=== PATIENT | female | born 1985 | race Caucasian/White ===

== ENCOUNTER 2016-06-18 08:02 | Emergency (ER) | payer MEDICAID, BC ==
[2010-05-12 07:11] VITALS: BMI 40.8
[~2016-06-18 08:02] MED LIST: MOTRIN800 MG PO
[2016-06-18 09:08] LABS: BASOPHILS 0.5 % (0.0-2.0); EOSINOPHILS 3.9 % (0-7); HEMATOCRIT 41.2 % (36.0-48.0); HEMOGLOBIN 13.3 g/dL (12-16); IMMATURE GRANULOCYTES 0.2 % (0-5); MCH 27.1 pg (26.0-34.0); MCHC 32.3 g/dL (31.0-37.0); MCV 84.1 fL (80.0-100.0); MEAN PLATELET VOLUME 9.7 fL (7.4-10.4); MONOCYTES 7.9 % (2-11); NEUTROPHILS 62.5 % (40-80); PLATELET COUNT 327 10x3/uL (130-400); RDW 14.4 % (11.5-14.5); WBC 10.2 10x3/uL (4.8-10.8)
[2016-06-18 09:45] LABS: APPEARANCE CLEAR (CLEAR); BILIRUBIN NEGATIVE (NEGATIVE); COLOR YELLOW (YELLOW); GLUCOSE NEGATIVE (NEGATIVE); KETONE NEGATIVE (NEGATIVE); LEUKOCYTE ESTERASE 1+ (NEGATIVE); NITRITE NEGATIVE (NEGATIVE); PROTEIN NEGATIVE (NEGATIVE); UROBILINOGEN NORMAL (NORMAL)
[2016-06-18 09:46] LABS: BACTERIA MODERATE /hpf (NONE SEEN); MUCUS <1+ /lpf (NONE SEEN); RED CELLS - URINE 0-5 /hpf (0-5)
== END 2016-06-18 10:15 | disposition home or self-care (01) ==
LOC: D.ER 08:02
PROVIDERS: Emergency Medicine
DX: M79.1 Myalgia (principal); J45.909 Unspecified asthma, uncomplicated; F17.200 Nicotine dependence, unspecified, uncomplicated

== ENCOUNTER 2017-02-04 10:27 | Emergency (ER) | payer MEDICAID ==
[2010-05-12 07:11] VITALS: BMI 40.8
[2017-02-04 12:35] LABS: BASOPHILS 0.5 % (0-2); EOSINOPHILS 8.2 % (0-7); HEMATOCRIT 42.7 % (36.0-48.0); HEMOGLOBIN 14.2 g/dL (12-16); IMMATURE GRANULOCYTES 0.2 % (0-5); LYMPHOCYTES 23.9 % (15-50); MCH 28.7 pg (26.0-34.0); MCHC 33.3 g/dL (31.0-37.0); MCV 86.4 fL (80.0-100.0); MEAN PLATELET VOLUME 9.4 fL (7.4-10.4); MONOCYTES 6.9 % (2-11); NEUTROPHILS 60.3 % (40-80); PLATELET COUNT 341 10x3/uL (130-400); RBC 4.94 10x6/uL (4.00-5.40); RDW 13.7 % (11.5-14.5); WBC 11.6 10x3/uL (4.8-10.8)
[2017-02-04 12:48] LABS: ALBUMIN 3.5 g/dL (3.4-5.0); ALKALINE PHOSPHATASE 50 U/L (46-116); ALT (SGPT) 29 U/L (10-68); BILIRUBIN - TOTAL 0.45 mg/dL (0.2-1.3); CALC OSMOLALITY 272 mosm/kg (275-300); CALCIUM 9.5 mg/dL (8.5-10.1); CARBON DIOXIDE 26.3 mmol/L (21.0-32.0); CHLORIDE - SERUM 103 mmol/L (98-107); CREATININE - SERUM 0.9 mg/dL (0.6-1.3); GLUCOSE 98 mg/dL (74-106); POTASSIUM - SERUM 4.8 mmol/L (3.5-5.1); PROTEIN - SERUM 8.4 g/dL (6.4-8.2); SODIUM 137 mmol/L (136-145); UREA NITROGEN 10 mg/dL (7-18); eGFR NON AFRICAN AMERICAN 78 mL/min (90-120)
== END 2017-02-04 13:51 | disposition home or self-care (01) ==
LOC: D.ER 10:27
PROVIDERS: Nurse Practitioner Family
DX: J45.901 Unspecified asthma with (acute) exacerbation (principal); J18.9 Pneumonia, unspecified organism; F17.200 Nicotine dependence, unspecified, uncomplicated

== ENCOUNTER 2017-02-16 21:22 | Inpatient (IN) | payer MEDICAID ==
[2017-02-16 22:33] LABS: BASOPHILS 0.1 % (0-2); EOSINOPHILS 1.7 % (0-7); HEMATOCRIT 42.2 % (36.0-48.0); HEMOGLOBIN 13.9 g/dL (12-16); IMMATURE GRANULOCYTES 0.3 % (0-5); LYMPHOCYTES 7.8 % (15-50); MCH 28.6 pg (26.0-34.0); MCHC 32.9 g/dL (31.0-37.0); MCV 86.8 fL (80.0-100.0); MEAN PLATELET VOLUME 9.5 fL (7.4-10.4); MONOCYTES 4.4 % (2-11); NEUTROPHILS 85.7 % (40-80); PLATELET COUNT 311 10x3/uL (130-400); RBC 4.86 10x6/uL (4.00-5.40); RDW 13.7 % (11.5-14.5); WBC 19.7 10x3/uL (4.8-10.8)
[2017-02-16 22:47] LABS: ALBUMIN 3.9 g/dL (3.4-5.0); ALKALINE PHOSPHATASE 43 U/L (46-116); ALT (SGPT) 21 U/L (10-68); CALC OSMOLALITY 274 mosm/kg (275-300); CALCIUM 9.2 mg/dL (8.5-10.1); CARBON DIOXIDE 26.9 mmol/L (21.0-32.0); CHLORIDE - SERUM 101 mmol/L (98-107); CREATININE - SERUM 0.9 mg/dL (0.6-1.3); GLUCOSE 137 mg/dL (74-106); PROTEIN - SERUM 8.1 g/dL (6.4-8.2); SODIUM 137 mmol/L (136-145); UREA NITROGEN 9 mg/dL (7-18); eGFR NON AFRICAN AMERICAN 78 mL/min (90-120)
[2017-02-16 23:14] LABS: CREATINE KINASE 107 UL (21-215); MAGNESIUM - SERUM 1.8 mg/dL (1.8-2.4); PRO BNP 34 pg/mL (0-125); TROPONIN-I < 0.017 ng/mL (0.000-0.060)
[2017-02-16 23:26] LABS: INR 0.97 (0.85-1.17); PROTIME 12.7 SECONDS (11.6-15.0)
[2017-02-16 23:28] LABS: D-DIMER-QUANTITATIVE < 0.27 ug/mLFEU (0.20-0.54)
[2017-02-16 23:54] LABS: APPEARANCE CLEAR (CLEAR); BILIRUBIN NEGATIVE (NEGATIVE); COLOR STRAW (YELLOW); GLUCOSE NEGATIVE (NEGATIVE); KETONE NEGATIVE (NEGATIVE); NITRITE NEGATIVE (NEGATIVE); PROTEIN NEGATIVE (NEGATIVE); SPECIFIC GRAVITY 1.015 (1.005-1.020); UROBILINOGEN NORMAL (NORMAL)
[2017-02-17] VITALS (7 sets, daily range): BP systolic 115–127; BP diastolic 60–86; BMI 37.7
[2017-02-17] LABS: UDS - AMPHET NEGATIVE QUAL (NEGATIVE); UDS - BARB NEGATIVE QUAL (NEGATIVE); UDS - BENZO NEGATIVE QUAL (NEGATIVE); UDS - COCAINE NEGATIVE QUAL (NEGATIVE); UDS - OPIATE NEGATIVE QUAL (NEGATIVE); UDS - PCP NEGATIVE QUAL (NEGATIVE); UDS - THC NEGATIVE QUAL (NEGATIVE)
[2017-02-17 00:03] LABS: BACTERIA FEW /hpf (NONE SEEN); EPITHELIAL CELLS OCC /hpf (0-5); RED CELLS - URINE OCC /hpf (0-5); WHITE CELLS - URINE OCC /hpf (0-5)
--- NOTE | 2017-02-17 03:04 | NUR ---
REC'D PER WC FROM ER DEPT TO ROOM 2215 A 31 Y/O W/FE PER SERVICES DR. MATHEW WITH DX COPD/ASTHMA NKDA. IV PATENT RT UPPER ARM OF NS AT 50CC'S/HR. SITE CLEAR. PLACED ON TELM. SHOWS SR WITH HR 85. DIMINISHED BREATH SOUNDS BILAT. PLACED ON O2 AT 2 L/M PER NC O2 SAT 90-91% ON ROOM AIR. PT SOB WITH EXERTION. ASSESSMENT PER ADMIT PACKET.
--- NOTE | 2017-02-17 04:50 | NUR ---
EYES CLOSED RESPIRATIONS WITH EASE AND UNLABORED.
--- NOTE | 2017-02-17 07:31 | NUR ---
PRN TYLENOL 500MG ADMINISTERED FOR HEADACHE AT THIS TIME. OXYGEN ON 2L VIA NC. DAUGHTER AT BEDSIDE AND CALL LIGHT IN REACH. IV TO RIGHT UPPER ARM REMAINS PATENT. CALL LIGHT IN REACH, WILL CONTINUE WITH PLAN OF CARE.
--- NOTE | 2017-02-17 09:04 | NUR ---
SCHEDULED PREDNISONE ADMINISTERED AT THIS TIME. PT REPORTS THAT HEADACHE IS GONE. DENIES NEEDS AT PRESENT TIME. WILL CONITNUE WITH PLAN OF CARE.
[2017-02-17 11:48] LABS: BASOPHILS 0.3 % (0-2); EOSINOPHILS 6.4 % (0-7); HEMATOCRIT 38.4 % (36.0-48.0); HEMOGLOBIN 12.5 g/dL (12-16); IMMATURE GRANULOCYTES 0.3 % (0-5); LYMPHOCYTES 23.8 % (15-50); MCH 28.4 pg (26.0-34.0); MCHC 32.6 g/dL (31.0-37.0); MCV 87.3 fL (80.0-100.0); MEAN PLATELET VOLUME 9.8 fL (7.4-10.4); NEUTROPHILS 61.2 % (40-80); PLATELET COUNT 323 10x3/uL (130-400); RDW 13.7 % (11.5-14.5); WBC 11.4 10x3/uL (4.8-10.8)
[2017-02-18 04:52] LABS: BASOPHILS 0.1 % (0-2); EOSINOPHILS 0.1 % (0-7); HEMATOCRIT 40.1 % (36.0-48.0); HEMOGLOBIN 12.8 g/dL (12-16); IMMATURE GRANULOCYTES 0.3 % (0-5); LYMPHOCYTES 6.8 % (15-50); MCH 28.6 pg (26.0-34.0); MCHC 31.9 g/dL (31.0-37.0); MEAN PLATELET VOLUME 10.7 fL (7.4-10.4); MONOCYTES 1.4 % (2-11); NEUTROPHILS 91.3 % (40-80); PLATELET COUNT 269 10x3/uL (130-400); RBC 4.47 10x6/uL (4.00-5.40); RDW 14.3 % (11.5-14.5)
[2017-02-18 04:55] LABS: MCV 89.7 fL (80.0-100.0); WBC 14.7 10x3/uL (4.8-10.8)
[2017-02-18 05:05] VITALS: BP 123/66
[2017-02-18 05:08] LABS: ALBUMIN 3.4 g/dL (3.4-5.0); ALKALINE PHOSPHATASE 42 U/L (46-116); ALT (SGPT) 19 U/L (10-68); BILIRUBIN - TOTAL 0.28 mg/dL (0.2-1.3); CALCIUM 9.3 mg/dL (8.5-10.1); CHLORIDE - SERUM 104 mmol/L (98-107); CREATININE - SERUM 0.9 mg/dL (0.6-1.3); PROTEIN - SERUM 7.8 g/dL (6.4-8.2); SODIUM 138 mmol/L (136-145); UREA NITROGEN 9 mg/dL (7-18); eGFR NON AFRICAN AMERICAN 78 mL/min (90-120)
[2017-02-18 05:11] LABS: CALC OSMOLALITY 279 mosm/kg (275-300); CARBON DIOXIDE 16.2 mmol/L (21.0-32.0); GLUCOSE 191 mg/dL (74-106)
--- NOTE | 2017-02-18 07:50 | NUR ---
ASSESSMENT COMPLETE. SL TO R UPPER ARM. O2 2L NC IN USE. FAMILY AT BEDSIDE. DENIES ANY NEEDS AT THIS TIME.
[2017-02-18 08:33] VITALS: BP 142/73
--- NOTE | 2017-02-18 12:00 | NUR ---
NO CHANGES NOTED AT THIS TIME.
[2017-02-18 12:26] VITALS: BP 120/65
[2017-02-18] MEDS ORDERED: VIBRAMYCIN 100100 MG PO (13:14)
[2017-02-18] MEDS ORDERED: FLORAJEN3 CAPS460 MG PO (13:15)
[2017-02-18] MEDS ORDERED: TESSALON PERLE100 MG PO (13:15)
[2017-02-18] MEDS ORDERED: PREDNISONE10 MG PO (13:15)
[2017-02-18] MEDS ORDERED: SINGULAIR10 MG PO (13:15)
[2017-02-18] MEDS ORDERED: MUCINEX600 MG PO (13:15)
[2017-02-18] MEDS ORDERED: NICODERM C1 PATCH .1 TRANSDERM (13:16)
[2017-02-18] MEDS ORDERED: VENTOLIN HFA18 GM INH (13:16)
--- NOTE | 2017-02-18 15:45 | NUR ---
SL REMOVED. CATHETER TIP INTACT. DISCHARGE TEACHING GIVEN TO PATIENT. SCRIPTS SENT ELECTRONICALLY TO [facility].
--- NOTE | 2017-02-18 16:00 | NUR ---
DC'D HOME WITH FAMILY. ESCORTED TO VEHICLE VIA WC WITH BELONGINGS.
--- NOTE | 2017-03-01 12:12 | CN ---
PATIENT NAME:RONALDO GEE MEDICAL RECORD: [id number] : 89 LOCATION:[facility] ADMIT DATE: 02/17/17 ACCOUNT: [id number] CONSULTING PHYSICIAN: CARLOS LEE MD REFERRING PHYSICIAN: BILL MATHEW DO DATE OF CONSULTATION: 02/17/2017 CONSULT REQUESTING PHYSICIAN: Bill Mathew DO REASON FOR CONSULTATION: Acute asthma, COPD exacerbation, dyspnea on exertion. HISTORY OF PRESENT ILLNESS: Ms. Gee is a 31-year-old female, who has a history of asthma and COPD. She is still smoking. The patient was in the ER a few days ago and she was discharged home with some antibiotic and steroid, but the patient ran out of inhaler and yesterday, she came in again to the ER with shortness of breath. Denies any fever or chills. No night sweats. REVIEW OF SYSTEMS: Mainly in the history of present illness. PAST MEDICAL HISTORY: 1. Asthma. 2. COPD. 3. Tobacco dependence syndrome. PAST SURGICAL HISTORY: Nonsignificant. ALLERGIES: There are no known drug allergies. PRESENT MEDICATIONS: [employer] is reviewed. PERSONAL AND SOCIAL HISTORY: The patient is still everyday smoker. She is a nondrinker. FAMILY HISTORY: Noncontributory. PHYSICAL EXAMINATION: GENERAL: Now, the patient is lying comfortably in bed. She is not in acute distress. VITAL SIGNS: The blood pressure is 127/86, pulse is 97, respirations 14, temperature 98.1, and SpO2 is 92% on room air. HEENT: Conjunctivae are pink. Sclerae nonicteric. NECK: Neck is supple. No JVD. CHEST: The chest excursion is minimal on both sides. Wheeze on forceful expiration. HEART: Rhythm regular. Normal sound. No murmur. ABDOMEN: Abdomen is soft. Bowel sounds present. No hepatosplenomegaly. RECTAL: Deferred. EXTREMITIES: No cyanosis, no clubbing, no pedal edema. SKIN: Warm. Normal turgor. CENTRAL NERVOUS SYSTEM: The patient is awake and alert. There are no obvious cranial nerve abnormalities. The gait was not tested. CHEST RADIOGRAPH: There is hyperinflation, no acute infiltrate. OTHER LABORATORY DATA: CBC: WBC is 19.7, hemoglobin 13.9, hematocrit 42.2, the CONSULT REPORT [id number] RONALDO GEE platelet count is 13.7. IMPRESSION: 1. Acute exacerbation of chronic obstructive pulmonary disease. 2. Acute bronchitis. 3. Asthma-COPD overlap syndrome. 4. Tobacco dependence syndrome. 5. Acute cough. RECOMMENDATION: 1. We will start on doxycycline 100 mg per oral b.i.d. 2. Methylprednisolone IV. 3. Brovana, budesonide nebulizer. 4. Singulair 10 mg daily. 5. Albuterol ipratropium nebulizer. 6. Check alpha-1 antitrypsin level. 7. The patient was counseled to quit smoking. She has already been started on Chantix. Dr. Mathew, thank you for involving me in the care of Ms. Gee. TRANSINT:[id number] Voice Confirmation ID: [id number] DOCUMENT ID: [id number] CARLOS LEE MD at 1212 CC: BILL MATHEW DO [id number] DICTATION DATE: 02/17/17 1439 LOW VISION THERAPIST: 02/17/17 1606 DIS IN 02/18/17 [facility] [address] [place] [address]
== END 2017-02-18 16:00 | disposition home or self-care (01) | DRG 191 ==
LOC: D.ER 21:22 → D.MS 02-17 01:35 → OBSVTIME 02-17 01:35 → D.MS 02-17 10:06
PROVIDERS: Emergency Medicine; Nurse Practitioner Family; ADMIT Family Medicine
DX: J44.1 Chronic obstructive pulmonary disease with (acute) exacerbation (principal); F17.203 Nicotine dependence unspecified, with withdrawal; R09.02 Hypoxemia

== ENCOUNTER 2017-04-12 17:14 | Emergency (ER) | payer MEDICAID ==
[2017-02-17 03:22] VITALS: BMI 37.7
[~2017-04-12 17:14] MED LIST changes: +FLORAJEN3 CAPS460 MG PO; +MUCINEX600 MG PO; +NICODERM C1 PATCH .1 TRANSDERM; +PREDNISONE10 MG PO; +SINGULAIR10 MG PO; +TESSALON PERLE100 MG PO; +VENTOLIN HFA18 GM INH; +VIBRAMYCIN 100100 MG PO
[2017-04-12 18:11] LABS: BASOPHILS 0.2 % (0-2); EOSINOPHILS 0.1 % (0-7); HEMATOCRIT 39.1 % (36.0-48.0); HEMOGLOBIN 12.9 g/dL (12-16); IMMATURE GRANULOCYTES 1.3 % (0-5); LYMPHOCYTES 12.4 % (15-50); MCH 29.4 pg (26.0-34.0); MCV 89.1 fL (80.0-100.0); MEAN PLATELET VOLUME 9.1 fL (7.4-10.4); MONOCYTES 7.1 % (2-11); NEUTROPHILS 78.9 % (40-80); PLATELET COUNT 274 10x3/uL (130-400); RBC 4.39 10x6/uL (4.00-5.40); RDW 14.1 % (11.5-14.5); WBC 9.5 10x3/uL (4.8-10.8)
[2017-04-12 18:35] LABS: ANION GAP 11.9 mmol/L (8-16); BILIRUBIN - TOTAL 0.13 mg/dL (0.2-1.3); CALCIUM 8.8 mg/dL (8.5-10.1); CARBON DIOXIDE 27.6 mmol/L (21.0-32.0); POTASSIUM - SERUM 3.5 mmol/L (3.5-5.1); PROTEIN - SERUM 6.9 g/dL (6.4-8.2)
== END 2017-04-12 19:16 | disposition home or self-care (01) ==
LOC: D.ER 17:14
PROVIDERS: Emergency Medicine
DX: J20.9 Acute bronchitis, unspecified (principal); Z87.09 Personal history of other diseases of the respiratory system; J44.9 Chronic obstructive pulmonary disease, unspecified

== ENCOUNTER 2017-07-14 04:37 | Observation (INO) | payer MEDICAID ==
[~2017-07-14] VITALS: Ht 170.2 cm; Wt 122.7 kg
[2017-07-14 05:14] LABS: BASOPHILS 0.5 % (0-2); EOSINOPHILS 6.2 % (0-7); HEMATOCRIT 38.9 % (36.0-48.0); IMMATURE GRANULOCYTES 0.3 % (0-5); LYMPHOCYTES 27.7 % (15-50); MCH 29.1 pg (26.0-34.0); MCHC 33.4 g/dL (31.0-37.0); MCV 87.2 fL (80.0-100.0); MEAN PLATELET VOLUME 9.5 fL (7.4-10.4); MONOCYTES 6.8 % (2-11); NEUTROPHILS 58.5 % (40-80); RBC 4.46 10x6/uL (4.00-5.40); RDW 13.2 % (11.5-14.5); WBC 11.5 10x3/uL (4.8-10.8)
[2017-07-14 05:16] LABS: PLATELET COUNT 375 10x3/uL (130-400)
[2017-07-14 05:29] LABS: APTT 36.6 SECONDS (22.8-39.4); INR 1.01 (0.85-1.17); PROTIME 12.9 SECONDS (11.6-15.0)
[2017-07-14 05:30] LABS: D-DIMER-QUANTITATIVE 0.44 ug/mLFEU (0.20-0.54)
[2017-07-14 05:40] LABS: ALBUMIN 3.3 g/dL (3.4-5.0); ALKALINE PHOSPHATASE 36 U/L (46-116); ALT (SGPT) 20 U/L (10-68); CALC OSMOLALITY 274 mosm/kg (275-300); CALCIUM 9.1 mg/dL (8.5-10.1); CARBON DIOXIDE 22.8 mmol/L (21.0-32.0); CHLORIDE - SERUM 104 mmol/L (98-107); CREATININE - SERUM 0.8 mg/dL (0.6-1.3); POTASSIUM - SERUM 3.9 mmol/L (3.5-5.1); PROTEIN - SERUM 7.7 g/dL (6.4-8.2); SODIUM 139 mmol/L (136-145); UREA NITROGEN 5 mg/dL (7-18); eGFR NON AFRICAN AMERICAN 89 mL/min (90-120)
[2017-07-14 05:48] LABS: GLUCOSE 101 mg/dL (74-106)
[2017-07-14 05:51] LABS: CKMB 0.8 U/L (0.0-3.6); CREATINE KINASE 135 UL (21-215); PRO BNP 90 pg/mL (0-125); TROPONIN-I < 0.017 ng/mL (0.000-0.060)
[2017-07-14 11:30] VITALS: BMI 42.4
[2017-07-14 14:49] VITALS: Ht 170.2 cm; Wt 122.7 kg
[2017-07-14 16:18] VITALS: BP 136/72
== END 2017-07-14 18:35 | disposition left against medical advice (07) ==
LOC: D.ER 04:37 → D.M2 06:57 → OBSVTIME 06:57 → D.M2 18:35
PROVIDERS: Family Medicine
DX: J44.1 Chronic obstructive pulmonary disease with (acute) exacerbation (principal); J96.21 Acute and chronic respiratory failure with hypoxia; F17.203 Nicotine dependence unspecified, with withdrawal

== ENCOUNTER 2017-09-21 03:50 | Emergency (ER) | payer MEDICAID ==
[~2017-09-21] VITALS: Ht 170.2 cm; Wt 125.5 kg
[2017-09-21 03:52] VITALS: Ht 170.2 cm; Wt 125.5 kg
[2017-09-21] MEDS ORDERED: STERAPRED 5MG 65 M1 PO (04:07)
[2017-09-21] MEDS ORDERED: ZITHROMAX250 MG PO (04:07)
[2017-09-21] MEDS ORDERED: PROMETHAZINE W473 M1 PO (05:46)
[2017-09-21 05:57] VITALS: BP 143/54
== END 2017-09-21 05:58 | disposition home or self-care (01) ==
LOC: D.ER 03:50
DX: J20.9 Acute bronchitis, unspecified (principal); R09.89 Other specified symptoms and signs involving the circulatory and respiratory systems

== ENCOUNTER 2017-11-13 20:47 | Emergency (ER) | payer MEDICAID ==
[~2017-11-13] VITALS: Ht 170.2 cm; Wt 127.3 kg
[~2017-11-13 20:47] MED LIST changes: +PROMETHAZINE W473 M1 PO; +STERAPRED 5MG 65 M1 PO; +ZITHROMAX250 MG PO
[2017-11-13 21:03] VITALS: Ht 170.2 cm; Wt 127.3 kg
[2017-11-13] MEDS ORDERED: ALBUTEROL1.25 MG/3 INH (21:06)
[2017-11-13 21:44] LABS: BASOPHILS 0.3 % (0-2); HEMATOCRIT 41.4 % (36.0-48.0); HEMOGLOBIN 13.5 g/dL (12-16); IMMATURE GRANULOCYTES 0.2 % (0-5); LYMPHOCYTES 22.5 % (15-50); MCH 28.5 pg (26.0-34.0); MCHC 32.6 g/dL (31.0-37.0); MCV 87.3 fL (80.0-100.0); MEAN PLATELET VOLUME 9.5 fL (7.4-10.4); MONOCYTES 6.6 % (2-11); NEUTROPHILS 64.4 % (40-80); PLATELET COUNT 309 10x3/uL (130-400); RBC 4.74 10x6/uL (4.00-5.40); RDW 14.3 % (11.5-14.5); WBC 19.1 10x3/uL (4.8-10.8)
[2017-11-13 21:45] LABS: HCG SERUM NEGATIVE (NEGATIVE)
[2017-11-13 21:46] LABS: APTT 31.2 SECONDS (22.8-39.4); INR 0.98 (0.85-1.17); PROTIME 12.6 SECONDS (11.6-15.0)
[2017-11-13 21:47] LABS: D-DIMER-QUANTITATIVE < 0.27 ug/mLFEU (0.20-0.54)
[2017-11-13 21:52] LABS: ALBUMIN 3.1 g/dL (3.4-5.0); ALKALINE PHOSPHATASE 36 U/L (46-116); ALT (SGPT) 27 U/L (10-68); BILIRUBIN - TOTAL 0.44 mg/dL (0.2-1.3); CALC OSMOLALITY 270 mosm/kg (275-300); CARBON DIOXIDE 26.7 mmol/L (21.0-32.0); CHLORIDE - SERUM 104 mmol/L (98-107); CREATININE - SERUM 0.8 mg/dL (0.6-1.3); GLUCOSE 119 mg/dL (74-106); POTASSIUM - SERUM 4.1 mmol/L (3.5-5.1); PROTEIN - SERUM 7.1 g/dL (6.4-8.2); SODIUM 136 mmol/L (136-145); UREA NITROGEN 7 mg/dL (7-18); eGFR NON AFRICAN AMERICAN 89 mL/min (90-120)
[2017-11-13 22:04] LABS: CKMB 2.2 U/L (0.0-3.6); CREATINE KINASE 149 UL (21-215); PRO BNP 18 pg/mL (0-125)
[2017-11-13 22:06] LABS: TROPONIN-I < 0.017 ng/mL (0.000-0.060)
[2017-11-13 22:18] LABS: APPEARANCE CLEAR (CLEAR); BACTERIA FEW /hpf (NONE SEEN); BILIRUBIN NEGATIVE (NEGATIVE); COLOR YELLOW (YELLOW); EPITHELIAL CELLS 0-5 /hpf (0-5); GLUCOSE NEGATIVE (NEGATIVE); KETONE NEGATIVE (NEGATIVE); MUCUS >1+ /lpf (NONE SEEN); NITRITE NEGATIVE (NEGATIVE); PROTEIN NEGATIVE (NEGATIVE); RED CELLS - URINE 0-5 /hpf (0-5); UROBILINOGEN NORMAL (NORMAL); WHITE CELLS - URINE 0-5 /hpf (0-5)
[2017-11-13] MEDS ORDERED: MEDROL DOSE PACK4 MG PO (23:41)
[2017-11-13] MEDS ORDERED: ZPAK PO (23:41)
[2017-11-13] MEDS ORDERED: OMNICEF300 MG PO (23:41)
[2017-11-14 00:13] VITALS: BP 128/79
== END 2017-11-14 00:15 | disposition left against medical advice (07) ==
LOC: D.ER 20:47
PROVIDERS: Family Medicine
DX: J18.9 Pneumonia, unspecified organism (principal); J45.901 Unspecified asthma with (acute) exacerbation; R06.02 Shortness of breath; F17.200 Nicotine dependence, unspecified, uncomplicated

== ENCOUNTER 2017-12-01 12:53 | Inpatient (IN) | payer MEDICAID ==
[~2017-12-01] VITALS: Ht 170.2 cm; Wt 78.5 kg
--- NOTE | ~2017-12-01 | DS ---
PATIENT:RONALDO GEE :89 MEDICAL RECORD: [id number] DISCHARGE SUMMARY ADMISSION DATE: 12/01/17 DISCHARGE DATE: 12/05/17 DATE OF ADMISSION: 12/01/2017 DATE OF DISCHARGE: 12/05/2017 DISCHARGE DIAGNOSES: 1. Acute respiratory failure. 2. Multilobular pneumonia. 3. COPD. 4. Asthma. 5. Morbid obesity. 6. Iron-deficiency anemia. BRIEF HISTORY AND COURSE IN THE [place]: This is a 32-year-old white female admitted as a med on-call patient. The patient has been short of breath for the last 2-3 weeks and was seen in a walk-in clinic with diagnosis of pneumonia. She was treated with antibiotics and she felt better for few days, but she got worse. She does have a history of COPD and asthma and has had multiple episodes of pneumonia. On admission, her CBC showed WBC count of 11.6, hemoglobin 12.8, and hematocrit 39.1. Her blood sugar was 125. Her chest x-ray showed interstitial edema and CT scan showed patchy airspace disease bilaterally, representing pneumonia. Pulmonary medicine was consulted. The patient was started on vancomycin and Maxipime to cover MRSA and gram-negative rods. She was also started on IV steroids and DuoNeb, Brovana, and budesonide. She was also on cough medicine and oxygen. The patient's condition improved with treatment. On December 05, her IV infiltrated and she refused it to be reinserted. She was supposed to be switched to Levaquin and discharged; however, she left AMA. TRANSINT:[id number] Voice Confirmation ID: [id number] DOCUMENT ID: [id number] MAGALYS TESFAYE MD at 1549 CC: [id number] DICTATION DATE: 12/28/17 1125 SUPERVISOR FUNCTIONAL TESTING: 12/28/17 1143 DIS IN 12/05/17 [place] [id number]
--- NOTE | ~2017-12-01 | PN ---
PATIENT:RONALDO GEE MEDICAL RECORD: [id number] LOCATION:D[facility] ADMISSION DATE: 12/01/17 PROGRESS NOTE DATE OF SERVICE: 12/04/2017 This is a 32-year-old female who was admitted for acute hypoxemic respiratory failure. SUBJECTIVE: The patient is known to have multilobar community-acquired pneumonia. The patient has been on antibiotics as well as steroids. She has had leukocytosis secondary to steroids. The patient has been doing well. Has been on vancomycin and cefepime. Has no chest pain. She still has nonproductive cough. There is no fever or chills. PHYSICAL EXAMINATION: GENERAL: Physical exam reveals a young female, obese, in no acute distress. VITAL SIGNS: Temperature 98.2, heart rate of 81, respiratory rate 16, blood pressure 131/62. SHEENT: Unremarkable. NECK: Supple. Trachea is midline. No thyromegaly. CHEST: Coarse crackles with coughing. There is no chest wall tenderness or accessory muscle use. HEART: Exam shows no jugular venous distention, no murmur or gallop. ABDOMEN: Benign. EXTREMITIES: Show no clubbing, cyanosis or edema. LABORATORY DATA: White count of 31.2, hemoglobin of 11.5, and platelet count is 328. ASSESSMENT: 1. Acute asthmatic bronchitis, possible postnasal drainage, there is not much of focal infiltrates or pneumonia. 2. Morbid obesity. 3. History of asthma. PLAN: 1. Continue antibiotics. 2. Continue steroids. Decrease steroids to 20 mg every 8 hours. 3. Deep venous thrombosis prophylaxis. TRANSINT:[id number] Voice Confirmation ID: [id number] DOCUMENT ID: [id number] AMY GREENFIELD at 1248 CC: [id number] DICTATION DATE: 12/04/172033 CNC SPECIALIST: 12/05/17 0001 DIS IN 12/05/17 [facility] [address] [place] [id number]
[~2017-12-01 12:53] MED LIST changes: +ALBUTEROL1.25 MG/3 INH; +MEDROL DOSE PACK4 MG PO; +OMNICEF300 MG PO; +ZPAK PO
[2017-12-01 13:31] LABS: BASOPHILS 0.4 % (0-2); HEMATOCRIT 39.2 % (36.0-48.0); HEMOGLOBIN 12.8 g/dL (12-16); IMMATURE GRANULOCYTES 0.3 % (0-5); LYMPHOCYTES 22.9 % (15-50); MCH 28.5 pg (26.0-34.0); MCHC 32.7 g/dL (31.0-37.0); MCV 87.3 fL (80.0-100.0); MEAN PLATELET VOLUME 9.4 fL (7.4-10.4); MONOCYTES 5.1 % (2-11); NEUTROPHILS 65.3 % (40-80); PLATELET COUNT 354 10x3/uL (130-400); RBC 4.49 10x6/uL (4.00-5.40); RDW 13.7 % (11.5-14.5); WBC 11.6 10x3/uL (4.8-10.8)
[2017-12-01 13:45] LABS: ALBUMIN 3.4 g/dL (3.4-5.0); ANION GAP 8.5 mmol/L (8-16); BILIRUBIN - TOTAL 0.44 mg/dL (0.2-1.3); CALCIUM 9.1 mg/dL (8.5-10.1); CARBON DIOXIDE 31.1 mmol/L (21.0-32.0); POTASSIUM - SERUM 3.6 mmol/L (3.5-5.1)
[2017-12-01 19:29] VITALS: BP 138/68; BMI 27.1
[2017-12-01 20:00] VITALS: BP 138/67
[2017-12-02 04:00] VITALS: BP 126/69
[2017-12-02 07:11] LABS: BASOPHILS 0.1 % (0-2); EOSINOPHILS 0 % (0-7); HEMATOCRIT 35.2 % (36.0-48.0); HEMOGLOBIN 11.6 g/dL (12-16); IMMATURE GRANULOCYTES 0.5 % (0-5); LYMPHOCYTES 9.2 % (15-50); MCH 28.1 pg (26.0-34.0); MEAN PLATELET VOLUME 9.3 fL (7.4-10.4); MONOCYTES 1.6 % (2-11); NEUTROPHILS 88.6 % (40-80); PLATELET COUNT 308 10x3/uL (130-400); RBC 4.13 10x6/uL (4.00-5.40); RDW 13.4 % (11.5-14.5)
[2017-12-02 07:13] LABS: MCV 85.2 fL (80.0-100.0); WBC 14.8 10x3/uL (4.8-10.8)
[2017-12-02 09:24] VITALS: BP 128/56
[2017-12-02 09:28] VITALS: Ht 170.2 cm; Wt 78.5 kg
[2017-12-02 12:59] VITALS: BP 112/54
[2017-12-02 18:12] VITALS: BP 107/55
[2017-12-02 20:00] VITALS: BP 122/67
[2017-12-03 04:00] VITALS: BP 126/64
[2017-12-03 06:00] LABS: BASOPHILS 0.1 % (0-2); EOSINOPHILS 0 % (0-7); HEMATOCRIT 33.6 % (36.0-48.0); HEMOGLOBIN 10.8 g/dL (12-16); IMMATURE GRANULOCYTES 0.6 % (0-5); LYMPHOCYTES 5.7 % (15-50); MCH 27.8 pg (26.0-34.0); MCHC 32.1 g/dL (31.0-37.0); MCV 86.4 fL (80.0-100.0); MEAN PLATELET VOLUME 9.7 fL (7.4-10.4); NEUTROPHILS 90.6 % (40-80); PLATELET COUNT 329 10x3/uL (130-400); RBC 3.89 10x6/uL (4.00-5.40); RDW 13.9 % (11.5-14.5)
[2017-12-03 06:03] LABS: WBC 19.7 10x3/uL (4.8-10.8)
[2017-12-03 06:30] LABS: % SATURATION 5 % (15-55); IRON 18 ug/dl (35-150); TOTAL IRON BIND CAPACITY 334 ug/dl (260-445); UNSAT IRON BIND CAPACITY 316 ug/dl (150-375)
[2017-12-03 08:41] VITALS: BP 106/51
[2017-12-03 11:58] VITALS: BP 109/59
[2017-12-03 14:57] VITALS: BP 104/62
[2017-12-03 20:32] VITALS: BP 136/60
[2017-12-04 00:44] VITALS: BP 109/61
[2017-12-04 01:53] LABS: CREATININE - SERUM 0.9 mg/dL (0.6-1.3); VANCOMYCIN - TROUGH 20.6 ug/mL (10.0-20.0)
[2017-12-04 07:43] VITALS: BP 135/77
[2017-12-04 10:13] LABS: IMMUNOGLOBULIN A 394 mg/dL (87-352); IMMUNOGLOBULIN G 1068 mg/dL (700-1600)
[2017-12-04 11:47] LABS: HEMATOCRIT 35.5 % (36.0-48.0); HEMOGLOBIN 11.5 g/dL (12-16); MCH 28.3 pg (26.0-34.0); MCHC 32.4 g/dL (31.0-37.0); MCV 87.2 fL (80.0-100.0); MEAN PLATELET VOLUME 9.8 fL (7.4-10.4); PLATELET COUNT 320 10x3/uL (130-400); RBC 4.07 10x6/uL (4.00-5.40); RDW 13.8 % (11.5-14.5); WBC 21.2 10x3/uL (4.8-10.8)
[2017-12-04 12:13] LABS: ALBUMIN 3.1 g/dL (3.4-5.0); ALKALINE PHOSPHATASE 39 U/L (46-116); ALT (SGPT) 19 U/L (10-68); BILIRUBIN - TOTAL 0.27 mg/dL (0.2-1.3); CALC OSMOLALITY 284 mosm/kg (275-300); CALCIUM 8.7 mg/dL (8.5-10.1); CARBON DIOXIDE 22.4 mmol/L (21.0-32.0); CHLORIDE - SERUM 104 mmol/L (98-107); CREATININE - SERUM 0.9 mg/dL (0.6-1.3); POTASSIUM - SERUM 4.1 mmol/L (3.5-5.1); SODIUM 137 mmol/L (136-145); UREA NITROGEN 15 mg/dL (7-18); eGFR NON AFRICAN AMERICAN 78 mL/min (90-120)
[2017-12-04 12:14] LABS: GLUCOSE 282 mg/dL (74-106)
[2017-12-04 12:17] VITALS: BP 141/75
[2017-12-04 12:40] LABS: LYMPHOCYTES 12 % (15-50); MONOCYTES 2 % (2-11); NEUTROPHILS 85 % (40-80)
[2017-12-04 12:41] LABS: ANISOCYTOSIS OCC; PLATELET ESTIMATE NORMAL; ROULEAUX OCC; SMUDGE CELLS OCC
[2017-12-04 16:03] VITALS: BP 130/62
[2017-12-04 21:46] VITALS: BP 129/73
[2017-12-05 05:15] VITALS: BP 127/69
[2017-12-05 08:27] VITALS: BP 134/73
[2017-12-05 10:19] LABS: FOLATE (FOLIC ACID) - SERUM 3.5 ng/mL (>3.0)
[2017-12-06 13:19] LABS: IMMUNOGLOBULIN E 1681 IU/mL (0-100)
== END 2017-12-05 11:16 | disposition left against medical advice (07) | DRG 189 ==
LOC: D.ER 12:53 → D.EDHOLD 16:13 → D.MS 16:13
PROVIDERS: Family Medicine; Internal Medicine Pulmonary Disease
DX: J96.01 Acute respiratory failure with hypoxia (principal); J18.9 Pneumonia, unspecified organism; J44.0 Chronic obstructive pulmonary disease with (acute) lower respiratory infection; Z68.41 Body mass index [BMI] 40.0-44.9, adult; E66.01 Morbid (severe) obesity due to excess calories; D50.9 Iron deficiency anemia, unspecified; F17.210 Nicotine dependence, cigarettes, uncomplicated

== ENCOUNTER 2018-06-17 00:39 | Emergency (ER) | payer MEDICAID ==
[~2018-06-17] VITALS: Ht 170.2 cm; Wt 118.2 kg
[2018-06-17 00:45] VITALS: BP 133/85; Ht 170.2 cm; Wt 118.2 kg
[2018-06-17] MEDS ORDERED: ZPAK PO (01:18)
== END 2018-06-17 01:50 | disposition home or self-care (01) ==
LOC: D.ER 00:39
DX: J02.9 Acute pharyngitis, unspecified (principal); R05 Cough

== ENCOUNTER 2019-03-20 20:38 | Emergency (ER) | payer SELFPAY ==
[~2019-03-20] VITALS: Ht 170.2 cm; Wt 120.2 kg
[2019-03-20 20:45] VITALS: BP 130/75; Ht 170.2 cm; Wt 120.2 kg
== END 2019-03-20 21:12 | disposition left against medical advice (07) ==
LOC: D.ER 20:38
DX: L08.9 Local infection of the skin and subcutaneous tissue, unspecified (principal)

== ENCOUNTER 2019-09-30 07:41 | Emergency (ER) | payer MEDICAID ==
[~2019-09-30] VITALS: Ht 170.2 cm; Wt 120.5 kg
[2019-09-30 07:45] VITALS: Ht 170.2 cm; Wt 120.5 kg
[2019-09-30] MEDS ORDERED: AMOXICILLIN875 MG PO (08:30)
[2019-09-30 08:43] VITALS: BP 128/67
== END 2019-09-30 08:42 | disposition home or self-care (01) ==
LOC: D.ER 07:41
DX: J02.0 Streptococcal pharyngitis (principal); J45.909 Unspecified asthma, uncomplicated; Z72.0 Tobacco use

== ENCOUNTER 2019-10-25 14:48 | Emergency (ER) | payer MEDICAID ==
[~2019-10-25] VITALS: Ht 170.2 cm; Wt 122.7 kg
[~2019-10-25 14:48] MED LIST changes: +AMOXICILLIN875 MG PO
[2019-10-25 15:03] VITALS: Ht 170.2 cm; Wt 122.7 kg
[2019-10-25] MEDS ORDERED: AQUAPHOR HEALIN50 GM TOPICAL (15:48)
[2019-10-25 16:25] VITALS: BP 136/74
== END 2019-10-25 16:08 | disposition home or self-care (01) ==
LOC: D.ER 14:48
DX: S81.811A Laceration without foreign body, right lower leg, initial encounter (principal); W26.0XXA Contact with knife, initial encounter; Y93.9 Activity, unspecified; Y92.9 Unspecified place or not applicable; J45.909 Unspecified asthma, uncomplicated; Z72.0 Tobacco use

== ENCOUNTER 2019-12-26 06:16 | Emergency (ER) | payer OTHER ==
[~2019-12-26] VITALS: Ht 170.2 cm; Wt 122.7 kg
[~2019-12-26 06:16] MED LIST changes: +AQUAPHOR HEALIN50 GM TOPICAL
[2019-12-26 06:26] VITALS: Ht 170.2 cm; Wt 122.7 kg
[2019-12-26 06:57] LABS: CALC OSMOLALITY 269 mosm/kg (275-300); CALCIUM 9.6 mg/dL (8.5-10.1); CARBON DIOXIDE 21.7 mmol/L (21.0-32.0); CHLORIDE - SERUM 99 mmol/L (98-107); CREATININE - SERUM 1.2 mg/dL (0.6-1.3); POTASSIUM - SERUM 4.2 mmol/L (3.5-5.1); SODIUM 135 mmol/L (136-145); UREA NITROGEN 8 mg/dL (7-18); eGFR NON AFRICAN AMERICAN 55 mL/min (90-120)
[2019-12-26 07:02] LABS: HCG SERUM NEGATIVE (NEGATIVE)
[2019-12-26 07:03] LABS: GLUCOSE 140 mg/dL (74-106)
[2019-12-26 07:04] LABS: ALBUMIN 3.7 g/dL (3.4-5.0); ALKALINE PHOSPHATASE 46 U/L (30-120); ALT (SGPT) 21 U/L (10-68); AMYLASE - SERUM 42 U/L (25-115); BILIRUBIN - TOTAL 0.86 mg/dL (0.2-1.3); LIPASE 58 U/L (73-393); PROTEIN - SERUM 9.2 g/dL (6.4-8.2)
[2019-12-26 07:05] LABS: TROPONIN-I < 0.017 ng/mL (0.000-0.060)
[2019-12-26 07:11] LABS: HEMATOCRIT 41.1 % (36.0-48.0); MCH 26.4 pg (26.0-34.0); MCHC 31.6 g/dL (31.0-37.0); MCV 83.4 fL (80.0-100.0); MEAN PLATELET VOLUME 9.7 fL (7.4-10.4); PLATELET COUNT 424 10x3/uL (130-400); RBC 4.93 10x6/uL (4.00-5.40); RDW 14.4 % (11.5-14.5); WBC 32.1 10x3/uL (4.8-10.8)
[2019-12-26 07:33] LABS: LYMPHOCYTES 2 % (15-50); MONOCYTES 4 % (2-11); NEUTROPHILS 94 % (40-80)
[2019-12-26 07:34] LABS: PLATELET ESTIMATE NORMAL
[2019-12-26 07:46] LABS: BACTERIA MODERATE /hpf (NONE SEEN); BILIRUBIN NEGATIVE (NEGATIVE); KETONE NEGATIVE (NEGATIVE); NITRITE POSITIVE (NEGATIVE); UROBILINOGEN NORMAL (NORMAL); WHITE CELLS - URINE 25-50 /hpf (0-5)
[2019-12-26 07:51] LABS: UDS - AMPHET NEGATIVE QUAL (NEGATIVE); UDS - BARB NEGATIVE QUAL (NEGATIVE); UDS - BENZO NEGATIVE QUAL (NEGATIVE); UDS - COCAINE NEGATIVE QUAL (NEGATIVE); UDS - OPIATE POSITIVE QUAL (NEGATIVE); UDS - PCP NEGATIVE QUAL (NEGATIVE); UDS - THC POSITIVE QUAL (NEGATIVE)
[2019-12-26] MEDS ORDERED: LOMOTIL 2.5-0.1 EAC1 PO (09:38)
[2019-12-26] MEDS ORDERED: OMNICEF300 MG PO (09:38)
[2019-12-26] MEDS ORDERED: ZOFRAN ODT4 MG/UDTAB PO (09:38)
[2019-12-26 12:17] VITALS: BP 101/58
== END 2019-12-26 12:17 | disposition left against medical advice (07) ==
LOC: D.ER 06:16
PROVIDERS: Family Medicine
DX: N39.0 Urinary tract infection, site not specified (principal); A41.89 Other specified sepsis; A08.4 Viral intestinal infection, unspecified; R65.20 Severe sepsis without septic shock; R10.9 Unspecified abdominal pain